=== PATIENT | female | born 1950 | race Caucasian/White ===

== ENCOUNTER → 2018-06-21 08:24 | Outpatient (CLI) | payer MEDICARE ==
[2013-02-02 10:01] VITALS: BMI 34.8
== END | disposition home or self-care (01) ==
LOC: D.US 08:24
DX: R16.1 Splenomegaly, not elsewhere classified (principal)

== ENCOUNTER → 2018-11-27 09:01 | Outpatient (CLI) | payer MEDICARE ==
[2013-02-02 10:01] VITALS: BMI 34.8
[2018-11-27 10:21] LABS: ALBUMIN 3.5 g/dL (3.4-5.0); BILIRUBIN - DIRECT 0.34 mg/dL (0.00-0.30); BILIRUBIN - INDIRECT 0.54 mg/dL (0.00-1.00); BILIRUBIN - TOTAL 0.88 mg/dL (0.2-1.3); PROTEIN - SERUM 7.5 g/dL (6.4-8.2)
== END | disposition home or self-care (01) ==
LOC: D.US 09:01
PROVIDERS: Internal Medicine Gastroenterology
DX: K76.0 Fatty (change of) liver, not elsewhere classified (principal)

== ENCOUNTER 2019-04-05 19:06 | Inpatient (IN) | payer MEDICARE, MEDICAID ==
[~2019-04-05] VITALS: Ht 165.1 cm; Wt 88.0 kg
[2019-04-05] MEDS ORDERED: METOPROLOL TART50 MG PO (19:26)
[2019-04-05] MEDS ORDERED: PREVALITE POWD231 GM PO (19:27)
[2019-04-05] MEDS ORDERED: GLYBURIDE2.5 MG PO (19:27)
[2019-04-05] MEDS ORDERED: LISINOPRIL2.5 MG PO (19:27)
[2019-04-05] MEDS ORDERED: PROTONIX40 MG PO (19:28)
[2019-04-05] MEDS ORDERED: TRAZODONE HCL150 MG PO (19:28)
[2019-04-05] MEDS ORDERED: ZOCOR20 MG PO (19:28)
[2019-04-05 21:58] LABS: BASOPHILS 0.1 % (0-2); EOSINOPHILS 1.1 % (0-7); HEMATOCRIT 37.4 % (36.0-48.0); HEMOGLOBIN 12.4 g/dL (12-16); IMMATURE GRANULOCYTES 0.1 % (0-5); LYMPHOCYTES 24.3 % (15-50); MCH 27.9 pg (26.0-34.0); MCHC 33.2 g/dL (31.0-37.0); MEAN PLATELET VOLUME 11.1 fL (7.4-10.4); MONOCYTES 13.7 % (2-11); NEUTROPHILS 60.7 % (40-80); RBC 4.45 10x6/uL (4.00-5.40); RDW 14.5 % (11.5-14.5); WBC 7.2 10x3/uL (4.8-10.8)
[2019-04-05 22:03] LABS: PLATELET COUNT 81 10x3/uL (130-400)
[2019-04-05 22:08] LABS: ALBUMIN 3.5 g/dL (3.4-5.0); ANION GAP 11.9 mmol/L (8-16); BILIRUBIN - TOTAL 1.24 mg/dL (0.2-1.3); CALCIUM 9.4 mg/dL (8.5-10.1); CARBON DIOXIDE 26.7 mmol/L (21.0-32.0); CREATININE - SERUM 1.3 mg/dL (0.6-1.3); POTASSIUM - SERUM 4.6 mmol/L (3.5-5.1); PROTEIN - SERUM 7.5 g/dL (6.4-8.2)
[2019-04-05 22:35] LABS: PLATELET ESTIMATE DECREASED
[2019-04-05] MEDS ORDERED: TORADOL10 MG PO (23:44)
[2019-04-05] MEDS ORDERED: CLEOCIN HCL300 MG PO (23:44)
[2019-04-06 01:44] VITALS: BP 156/71; BMI 32.2
[2019-04-06 04:30] VITALS: BP 156/71
[2019-04-06 09:40] VITALS: BP 150/63
[2019-04-06 13:14] VITALS: BP 152/87
--- NOTE | 2019-04-06 14:24 | MORECARE ---
CASE MANAGEMENT DISCHARGE SUMMARY PATIENT: NATALIA BADILLO UNIT: [id number] ADM DATE: 04/06/19 AGE: 68 : 48 SEX: F ROOM/BED: D.5341 AUTHOR: DAVIS PERSAUD PHYSICIAN: REFERRING PHYSICIAN: LIZ YOUSSEF MD DATE OF SERVICE: 04/06/19 Discharge Plan Patient Name: NATALIA [facility]ADILL[facility] [facility] 1950 Planned Disposition: Home Anticipated Discharge Date: Discharge Date: Expected LOS: Initial Reviewer: [email or web address] Initial Review Date: 04/06/2019 Generated: 04/06/19 3:24 pm DCPIA - Discharge Planning Initial Assessment Updated by [email or web address]: Jd Huizar on 04/06/19 2:21 pm * Is the patient Alert and Oriented? Yes * How many steps to enter\exit or inside your home? NONE * PCP DR. CASTREJON * Pharmacy [facility] * Preadmission Environment Home Alone * ADLs Independent * Equipment Bedside Commode Cane Rolling Walker Walker * Other Equipment WALKER WITH SEAT AND BRAKES; PT IS NOT USING WALKER, PRIMARILY USES CANE. NO MEDICAL EQUIPMENT PROVIDER PREFERENCE * List name and contact numbers for known caregivers / representatives who currently or will assist patient after discharge: PATRICK BISHOP DTR, * Verbal permission to speak to the caregivers and representatives has been obtained from the patient. Yes * Community resources currently utilized None * Please name any agencies selected above. NONE * Additional services required to return to the preadmission environment? No * Can the patient safely return to the preadmission environment? Yes * Has this patient been hospitalized within the prior 30 days at any hospital? No Patient Name: NATALIA BADILLO Page [id number] at 1424 All edits/amendments must be made on the electronic document DICTATION DATE: 04/06/191422 CLIENT SERVICES ADMINISTRATOR: LAZ 04/06/19 142 RPT#: [id number] DC DATE: STATUS: ADM IN [facility] [address] [place] [address] END OF REPORT
[2019-04-06 14:27] VITALS: Ht 165.1 cm; Wt 88.0 kg
--- NOTE | 2019-04-06 14:31 | MORECARE ---
CASE MANAGEMENT DISCHARGE SUMMARY PATIENT: NATALIA BADILLO UNIT: [id number] ADM DATE: 04/06/19 AGE: 68 : 48 SEX: F ROOM/BED: D.1218 AUTHOR: HUNG,DOC PHYSICIAN: REFERRING PHYSICIAN: LIZ YOUSSEF MD DATE OF SERVICE: 04/06/19 Discharge Plan Patient Name: NATALIA BADILLO Facility: [facility]:[place] : 1950 Planned Disposition: Home Anticipated Discharge Date: Discharge Date: Expected LOS: Initial Reviewer: [email or web address] Initial Review Date: 04/06/2019 Generated: 04/06/19 3:31 pm DCP- Discharge Planning Updated by [email or web address]: Jd Huizar on 04/06/19 1:[address] Patient Name: NATALIA BADILLO Admission Status: ER Accout number: [id number] Admission Date: 04-06-2019 : 1950 Admission Diagnosis:CELLULITIS OF LEFT UPPER LIMB Attending: LIZ YOUSSEF Current LOS: 1 Anticipated DC Date: Planned Disposition: Home Primary Insurance: [facility] MEDICARE SOLUTIONS Discharge Planning Comments: CM MET WITH PT AND DAUGHTER IN ROOM TO DISCUSS DISCHARGE PLANNING AND NEEDS. NATALIA BADILLO provided verbal consent to discuss current and ongoing needs with/in the presence of: DAUGHTERPATRICK. PT REPORTS LIVING AT HOME INDEPENDENTLY AND ALONE. PT HAS CANE, BEDSIDE COMMODE, STANDARD WALKER AND ROLLING WALKER WITH SEAT AND BRAKES. PT HAS NO MEDICAL EQUIPMENT PROVIDER PREFERENCE. PT HAS NO OUTSIDE SERVICES ASSISTING IN THE HOME. CM DISCUSSED AVAILABILITY OF HOME HEALTH, REHAB SERVICES AND MEDICAL EQUIPMENT. PT DENIES DISCHARGE NEEDS, REPORTS HER DAUGHTER WILL PICK HER UP FOR DISCHARGE HOME. PT PLANS TO DISCHARGE HOME ALONE, FAMILY LIVES CLOSE TO ASSIST IF NEEDED. FAMILY TO TRANSPORT HOME. NO ANTICIPATED DISCHARGE NEEDS. CM TO FOLLOW AND ASSIST IF NEEDED. Advertiser: Jd Huizar DCPIA - Discharge Planning Initial Assessment Updated by [email or web address]: Jd Huizar on 04/06/19 2:21 pm * Is the patient Alert and Oriented? Yes * How many steps to enter\exit or inside your home? NONE * PCP DR. CASRTEJON * Pharmacy [facility] * Preadmission Environment Home Alone * ADLs Independent * Equipment Bedside Commode Cane Rolling Walker Walker * Other Equipment WALKER WITH SEAT AND BRAKES; PT IS NOT USING WALKER, PRIMARILY USES CANE. NO MEDICAL EQUIPMENT PROVIDER PREFERENCE * List name and contact numbers for known caregivers / representatives who currently or will assist patient after discharge: PATRICK BISHOP DTR, * Verbal permission to speak to the caregivers and representatives has been obtained from the patient. Yes * Community resources currently utilized None * Please name any agencies selected above. NONE * Additional services required to return to the preadmission environment? No * Can the patient safely return to the preadmission environment? Yes * Has this patient been hospitalized within the prior 30 days at any hospital? No Last DP export: 04/06/19 1:24 p Patient Name: NATALIA BADILLO Page 13811 at 1431 All edits/amendments must be made on the electronic document DICTATION DATE: 04/06/191430 CASHIER MANAGER: LAZ 04/06/191430 RPT#: [id number] DC DATE: STATUS: ADM IN [facility] [address] [place] [address] END OF REPORT
[2019-04-06 17:45] VITALS: BP 126/62
[2019-04-06 18:07] LABS: APPEARANCE CLEAR (CLEAR); BILIRUBIN NEGATIVE (NEGATIVE); COLOR YELLOW (YELLOW); GLUCOSE NEGATIVE (NEGATIVE); KETONE NEGATIVE (NEGATIVE); NITRITE NEGATIVE (NEGATIVE); PROTEIN NEGATIVE (NEGATIVE); UROBILINOGEN NORMAL (NORMAL)
[2019-04-06 18:08] LABS: BACTERIA FEW /hpf (NONE SEEN); EPITHELIAL CELLS 0-5 /hpf (0-5); RED CELLS - URINE OCC /hpf (0-5)
[2019-04-06 20:00] VITALS: BP 129/66
[2019-04-07] VITALS (7 sets, daily range): BP systolic 120–150; BP diastolic 43–72
[2019-04-07 06:17] LABS: ANION GAP 11.3 mmol/L (8-16); CREATININE - SERUM 1.1 mg/dL (0.6-1.3); POTASSIUM - SERUM 4.3 mmol/L (3.5-5.1)
[2019-04-07 06:24] LABS: BASOPHILS 0 % (0-2); HEMATOCRIT 33.5 % (36.0-48.0); HEMOGLOBIN 10.9 g/dL (12-16); IMMATURE GRANULOCYTES 0.2 % (0-5); LYMPHOCYTES 30.9 % (15-50); MCHC 32.5 g/dL (31.0-37.0); MCV 82.9 fL (80.0-100.0); MEAN PLATELET VOLUME 10.9 fL (7.4-10.4); MONOCYTES 19.5 % (2-11); NEUTROPHILS 46.4 % (40-80); PLATELET COUNT 82 10x3/uL (130-400); RBC 4.04 10x6/uL (4.00-5.40); RDW 14.4 % (11.5-14.5)
[2019-04-07 06:28] LABS: WBC 4.1 10x3/uL (4.8-10.8)
[2019-04-07 07:42] LABS: PLATELET ESTIMATE DECREASED
[2019-04-07] MEDS ORDERED: LOMOTIL 2.5-0.1 EAC1 PO (08:23)
[2019-04-08 04:30] VITALS: BP 137/57
[2019-04-08 05:33] LABS: BASOPHILS 0.3 % (0-2); EOSINOPHILS 3.8 % (0-7); HEMATOCRIT 33.5 % (36.0-48.0); HEMOGLOBIN 11.1 g/dL (12-16); MCH 27.3 pg (26.0-34.0); MCHC 33.1 g/dL (31.0-37.0); MCV 82.3 fL (80.0-100.0); MEAN PLATELET VOLUME 10.7 fL (7.4-10.4); MONOCYTES 15.3 % (2-11); NEUTROPHILS 42.6 % (40-80); PLATELET COUNT 82 10x3/uL (130-400); RBC 4.07 10x6/uL (4.00-5.40); RDW 13.9 % (11.5-14.5)
[2019-04-08 05:48] LABS: CARBON DIOXIDE 25.8 mmol/L (21.0-32.0); POTASSIUM - SERUM 3.8 mmol/L (3.5-5.1)
[2019-04-08 07:56] VITALS: BP 150/57
[2019-04-08 11:22] VITALS: BP 142/59
[2019-04-08] MEDS ORDERED: VIBRAMYCIN 100100 MG PO (12:11)
--- NOTE | 2019-04-09 09:27 | MORECARE ---
CASE MANAGEMENT DISCHARGE SUMMARY PATIENT: NATALIA BADILLO UNIT: [id number] ADM DATE: 04/06/19 AGE: 68 : 48 SEX: F ROOM/BED: D.0840 AUTHOR: HUNG,DOC PHYSICIAN: REFERRING PHYSICIAN: LIZ YOUSSEF MD DATE OF SERVICE: 04/09/19 Discharge Plan Patient Name: NATALIA BADILLO [facility]:[place] : 1950 Planned Disposition: Home Anticipated Discharge Date: 04/08/19 Discharge Date: 04/08/2019 Expected LOS: 2 Initial Reviewer: [email or web address] Initial Review Date: 04/06/2019 Generated: 04/09/19 10:27 am DCP- Discharge Planning Updated by [email or web address]: Jd Huizar on 04/06/19 1:[address] Patient Name: NATALIA BADILLO Admission Status: ER Accout number: [id number] Admission Date: 04-06-2019 : 1950 Admission Diagnosis:CELLULITIS OF LEFT UPPER LIMB Attending: LIZ YOUSSEF Current LOS: 1 Anticipated DC Date: Planned Disposition: Home Primary Insurance: [facility] MEDICARE SOLUTIONS Discharge Planning Comments: CM MET WITH PT AND DAUGHTER IN ROOM TO DISCUSS DISCHARGE PLANNING AND NEEDS. NATALIA BADILLO provided verbal consent to discuss current and ongoing needs with/in the presence of: DAUGHTERPATRICK. PT REPORTS LIVING AT HOME INDEPENDENTLY AND ALONE. PT HAS CANE, BEDSIDE COMMODE, STANDARD WALKER AND ROLLING WALKER WITH SEAT AND BRAKES. PT HAS NO MEDICAL EQUIPMENT PROVIDER PREFERENCE. PT HAS NO OUTSIDE SERVICES ASSISTING IN THE HOME. CM DISCUSSED AVAILABILITY OF HOME HEALTH, REHAB SERVICES AND MEDICAL EQUIPMENT. PT DENIES DISCHARGE NEEDS, REPORTS HER DAUGHTER WILL PICK HER UP FOR DISCHARGE HOME. PT PLANS TO DISCHARGE HOME ALONE, FAMILY LIVES CLOSE TO ASSIST IF NEEDED. FAMILY TO TRANSPORT HOME. NO ANTICIPATED DISCHARGE NEEDS. CM TO FOLLOW AND ASSIST IF NEEDED. Supervisor Opening And Picking: Jd Huizar DCPIA - Discharge Planning Initial Assessment Updated by [email or web address]: Jd Huizar on 04/06/19 2:21 pm * Is the patient Alert and Oriented? Yes * How many steps to enter\exit or inside your home? NONE * PCP DR. CASTREJON * Pharmacy [facility] * Preadmission Environment Home Alone * ADLs Independent * Equipment Bedside Commode Cane Rolling Walker Walker * Other Equipment WALKER WITH SEAT AND BRAKES; PT IS NOT USING WALKER, PRIMARILY USES CANE. NO MEDICAL EQUIPMENT PROVIDER PREFERENCE * List name and contact numbers for known caregivers / representatives who currently or will assist patient after discharge: RADHA MONTGOMERYR, * Verbal permission to speak to the caregivers and representatives has been obtained from the patient. Yes * Community resources currently utilized None * Please name any agencies selected above. NONE * Additional services required to return to the preadmission environment? No * Can the patient safely return to the preadmission environment? Yes * Has this patient been hospitalized within the prior 30 days at any hospital? No Coverage Notice Reviewer: [email or web address] Salena Dent Notice Issued Date-Time: 04/08/2019 13:25 Notice Type: IM Discharge Notice Notice Delivered To: Patient Relationship to Patient: Self Webbing [employer] Name: Delivery Method: HAND - Hand Delivered [place]ell Days: Prior Verbal Notification: Recipient Understood Notice: Yes Recipient Signature: Yes Med Rec Note Co-signed by Attending: Coverage Notice Comment: Last DP export: 04/06/19 1:31 p Patient Name: NATALIA BADILLO Page 03190 at 0927 All edits/amendments must be made on the electronic document DICTATION DATE: 04/09/19925 LEARNING DESIGN SPECIALIST: LAZ 04/09/19925 RPT#: [id number] DC DATE:04/08/19 STATUS: DIS IN [facility] [address] [place] [address] END OF REPORT
== END 2019-04-08 16:33 | disposition home or self-care (01) | DRG 638 ==
LOC: D.ER 19:06 → D.M2 04-06 00:08
PROVIDERS: Emergency Medicine; ADMIT Internal Medicine Nephrology; ATTEND Internal Medicine Nephrology
DX: E11.628 Type 2 diabetes mellitus with other skin complications (principal); L03.114 Cellulitis of left upper limb; I10 Essential (primary) hypertension; D69.6 Thrombocytopenia, unspecified; E78.5 Hyperlipidemia, unspecified

== ENCOUNTER 2019-08-01 11:46 | Emergency (ER) | payer MEDICARE, MEDICAID ==
[~2019-08-01] VITALS: Ht 165.1 cm; Wt 85.9 kg
[~2019-08-01 11:46] MED LIST: CLEOCIN HCL300 MG PO; GLYBURIDE2.5 MG PO; LISINOPRIL2.5 MG PO; LOMOTIL 2.5-0.1 EAC1 PO; METOPROLOL TART50 MG PO; PREVALITE POWD231 GM PO; PROTONIX40 MG PO; TORADOL10 MG PO; TRAZODONE HCL150 MG PO; VIBRAMYCIN 100100 MG PO; ZOCOR20 MG PO
[2019-08-01 12:27] VITALS: Ht 165.1 cm; Wt 85.9 kg
[2019-08-01] MEDS ORDERED: CLOTRIMAZOLE-BE30 ML TOPICAL (13:31)
[2019-08-01] MEDS ORDERED: MUPIROCIN22 GM TOPICAL (13:31)
[2019-08-01 14:02] VITALS: BP 119/59
== END 2019-08-01 13:51 | disposition home or self-care (01) ==
LOC: D.ER 11:46
DX: L01.00 Impetigo, unspecified (principal); L30.8 Other specified dermatitis